=== PATIENT | female | born 1960 | race Caucasian/White ===

== ENCOUNTER 2023-09-29 14:32 | Inpatient (IN) | payer OTHER ==
--- NOTE | 2023-09-29 14:57 | ED ---
General Adult HPI - General Chief complaint: Neuro Symptoms/Deficit Stated complaint: Stroke Time Seen by Provider: 09/29/23 14:45 Source: patient, RN notes reviewed, old records reviewed Mode of arrival: EMS Limitations: no limitations - History of Present Illness Initial comments: This is a 63-year-old female who presents to the emergency department stating that last night at 9:00 she went to bed and she was normal when she woke up at 6:00 today she started having some difficulty speaking and decreased strength in her left leg and decreased sensation in her left arm. Patient states this occurred about a week ago and she went to [facility] where they did a CAT scan and MRI and sent her home telling her she had a TIA. Patient states si nce then she followed up with her primary medical care doctor and he told her he thought she had a stroke. Patient states she does not have the results of the MRI or CAT scan. Patient states this is occurred 3 other times since the original time that it occurred and she went to the hospital. Patient states that 3 other times it occurred she did not go to the hospital. Patient denies any recent fever chills or cough or patient denies any recent injury or trauma. Patient denies any chest pain difficulty breathing or shortness of breath. Patient is any palpitations. Patient denies any abdominal pain. - Related Data Allergies Allergy/AdvReac Type Severity Reaction Status Date / Time No Known Allergies Allergy Verified 09/29/23 14:45 Review of Systems ROS Statement: Those systems with pertinent positive or pertinent negative responses have been documented in the HPI. ROS Other: All systems not noted in ROS Statement are negative. Past Medical History Past Medical History: COPD, CVA/TIA, Hypertension History of Any Multi-Drug Resistant Organisms: None Reported Past Surgical History: Appendectomy, Cholecystectomy, Hysterectomy, Tonsillectomy Past Psychological History: No Psychological Hx Reported Smoking Status: Current every day smoker Past Alcohol Use History: None Reported Past Drug Use History: None Reported General Exam - General Exam Comments Initial Comments: GENERAL: Patient is well-developed and well-nourished. Patient is nontoxic and well- hydrated and is in no acute distress. ENT: Neck is soft and supple. No significant lymphadenopathy is noted. Oropharynx is clear. Moist mucous membranes. Neck has full range of motion without eliciting any pain. EYES: The sclera were anicteric and conjunctiva were pink and moist. Extraocular movements were intact and pupils were equal round and reactive to light. Eyelids were unremarkable. PULMONARY: Unlabored respirations. Good breath sounds bilaterally. No audible rales rhonchi or wheezing was noted. CARDIOVASCULAR: There is a regular rate and rhythm without any murmurs gallops or rubs. ABDOMEN: Soft and nontender with normal bowel sounds. SKIN: Skin is clear with no lesions or rashes and otherwise unremarkable. NEUROLOGIC: Patient is alert and oriented x3. Cranial nerves II through XII are grossly intact. Patient has 3 out of 5 weakness with the left lower extremity 4 plantarflexion. Patient is also unable to lift leg off the bed and she can easily do with the right leg. Patient has no drift patient states she does have some decrease sensation when I touch her left arm patient has some expressive aphasia symmetrical smile. Cerebellar exam grossly intact. NIH 3 MUSCULOSKELETAL: Normal extremities with adequate strength and full range of motion. No lower extremity swelling or edema. No calf tenderness. LYMPHATICS: No significant lymphadenopathy is noted PSYCHIATRIC: Normal psychiatric evaluation. Limitations: no limitations Course Vital Signs 09/29/23 09/29/23 14:35 14:46 Temperature 98.8 F Pulse Rate 106 H 105 H Respiratory 16 16 Rate Blood Pressure 150/86 164/99 O2 Sat by Pulse 92 L 93 L Oximetry Medical Decision Making - Medical Decision Making EKG was interpreted by myself EKG shows a sinus tachycardia at 101 bpm parables 135 QRS of 62 QT interval 326 QTc is 384. Patient's EKG shows no ST segment ovation or depression. Was pt. sent in by a medical professional or institution (, PA, IT ASSISTANT, urgent care, hospital, or long-term...) When possible be specific @ -No Did you speak to anyone other than the patient for history (EMS, parent, family, police, friend...)? What history was obtained from this source @ -No Did you review nursing and triage notes (agree or disagree)? Why? @ -I reviewed and agree with nursing and triage notes Were old charts reviewed (outside hosp., previous admission, EMS record, old EKG, old radiological studies, urgent care reports/EKG's, long-term records)? Report findings @ -No old charts were reviewed Differential Diagnosis (chest pain, altered mental status, abdominal pain women, abdominal pain men, vaginal bleeding, weakness, fever, dyspnea, syncope, headache, dizziness, GI bleed, back pain, seizure, CVA, palpatations, mental health, musculoskeletal)? @ -Differential CVA Ischemic stroke, hemorrhagic stroke, brain tumor, atypical migraine, Wernicke's encephalopathy, seizure, multiple sclerosis, meningitis, encephalitis, hypoglycemia, Guillain-Portillo, electrolytes disturbance, myasthenia gravis.... This is not meant to be an all-inclusive list EKG interpreted by me (3pts min.). @ -As above X-rays interpreted by me (1pt min.). @ -Chest x-ray shows no acute abnormality CT interpreted by me (1pt min.). @ -CT of the brain shows no acute abnormality CT angiogram of the head and neck showed no acute abnormality U/S interpreted by me (1pt. min.). @ -None done What testing was considered but not performed or refused? (CT, X-rays, U/S, labs)? Why? @ -None What meds were considered but not given or refused? Why? @ -None Did you discuss the management of the patient with other professionals (professionals i.e. , PA, IT ASSISTANT, lab, RT, psych nurse, social professionals, director market intelligence, teacher, air control/anti air warfare officer, pillowcase cleaner)? Give summary @ -I spoke with [facility] they agreed to admit the patient admit the patient wrote admitting orders but I also spoke with Dr. Jalloh and he agreed no intervention was indicated at this time Was smoking cessation discussed for >3mins.? @ -No Was critical care preformed (if so, how long)? @ -35 minutes Were there social determinants of health that impacted care today? How? (Homelessness, low income, unemployed, alcoholism, drug addiction, transportation, low edu. Level, literacy, decrease access to med. care, residential, rehab)? @ -No Was there de-escalation of care discussed even if they declined (Discuss DNR or withdrawal of care, Hospice)? DNR status @ -No What co-morbidities impacted this encounter? (DM, HTN, Smoking, COPD, CAD, Cancer, CVA, ARF, Chemo, Hep., AIDS, mental health diagnosis, sleep apnea, morbid obesity)? @ -None Was patient admitted / discharged? Hospital course, mention meds given and route, prescriptions, significant lab abnormalities, going to OR and other pertinent info. @ -Patient continued to have decreased strength in the left leg stuttering speech and some decrease sensation of the left arm Undiagnosed new problem with uncertain prognosis? @ -No Drug Therapy requiring intensive monitoring for toxicity (Heparin, Nitro, Insulin, Cardizem)? @ -No Were any procedures done? @ -No Diagnosis/symptom? @ -CVA Acute, or Chronic, or Acute on Chronic? @ -Acute Uncomplicated (without systemic symptoms) or Complicated (systemic symptoms)? @ -Default Side effects of treatment? @ -Did Exacerbation, Progression, or Severe Exacerbation? @ -No Poses a threat to life or bodily function? How? (Chest pain, [place], [place], pneumonia, PE, COPD, DKA, ARF, appy, cholecystitis, CVA, Diverticulitis, Homicidal, Suicidal, threat to staff... and all critical care pts) @ -Yes this could lead to a larger stroke and morbidity and mortality Disposition Clinical Impression: Cerebrovascular accident (CVA) Disposition: ADMITTED IP TO THIS HOSP Referrals: Austin Chappell [Primary Care Provider] - 1-2 days Time of Disposition: 15:23
[2023-09-29 15:38] LABS: ALT 34 U/L (4-34); AST 26 U/L (14-36); African American GFR (CKD) 46 (>60 ml/min/1.73 sqM); Albumin 4.2 g/dL (3.5-5.0); Alkaline Phosphatase 148 U/L (38-126); Anion Gap 8 mmol/L; Blood Urea Nitrogen 21 mg/dL (7-17); Calcium 8.8 mg/dL (8.4-10.2); Carbon Dioxide 25 mmol/L (22-30); Chloride 104 mmol/L (98-107); Creatine Kinase 39 U/L (30-135); Glucose 306 mg/dL (74-99); Non-African American GFR(CKD) 40 (>60 ml/min/1.73 sqM); Potassium 4.8 mmol/L (3.5-5.1); Sodium 137 mmol/L (137-145); Total Bilirubin 0.7 mg/dL (0.2-1.3); Total Protein 6.8 g/dL (6.3-8.2)
--- NOTE | 2023-09-29 15:39 | CT ---
EXAMINATION TYPE: CT brain wo con CT DLP: mGycm, Automated exposure control for dose reduction was used. DATE OF EXAM: 09/29/2023 3:15 PM COMPARISON: None.. CLINICAL INDICATION:Female, 63 years old with history of Neuro deficit, acute, stroke suspected, TECHNIQUE: Brain: Axial CT images of the brain were obtained with coronal and sagittal reformats created and rev iewed. Contrast used: None. Oral contrast used: None. FINDINGS: Extra-axial spaces: No abnormal extra-axial fluid collections. Basilar cisterns are patent. Ventricular system: Within normal limits. Cerebral parenchyma: No increased attenuation to suggest acute intraparenchymal hemorrhage. The gra y-white matter interface appears maintained. Mild/moderate generalized brain atrophy. Scattered hyp oattenuating areas are seen within the cerebral white matter, nonspecific but most often seen with ch ronic microvascular ischemic changes; mild in degree. Cerebellum: No acute abnormality. Mass effect: No evidence of mass effect or midline shift. Intracranial vasculature: Atherosclerotic calcifications of the larger arteries near the skull base. Soft tissues: No acute or concerning abnormality. Visualized orbits: Orbital contents appear grossly intact. Calvarium/osseous structures: No evidence of calvarial fracture. Paranasal sinuses and mastoid air cells: Clear. MRI is more sensitive for detecting acute processes such as infarct, and may be considered if clinica lly warranted. IMPRESSION: 1. No CT evidence of an acute intracranial abnormality. 2. Atrophy and chronic microvascular ischemic white matter changes.
[2023-09-29 15:42] LABS: Basophils % (A) 0 %; Eosinophils % (A) 0 %; HCT 37.4 % (34.0-46.0); HGB 12.5 gm/dL (11.4-16.0); Lymphocytes # (A) 1.3 k/uL (1.0-4.8); Lymphocytes % (A) 8 %; MCH 27.9 pg (25.0-35.0); MCHC 33.4 g/dL (31.0-37.0); MCV 83.7 fL (80.0-100.0); Mean Platelet Volume 9.4; Monocytes # (A) 0.3 k/uL (0-1.0); Monocytes % (A) 2 %; Neutrophils # (A) 14.8 k/uL (1.3-7.7); Neutrophils % (A) 90 %; Platelet Count 199 k/uL (150-450); RBC 4.47 m/uL (3.80-5.40); RDW 15.1 % (11.5-15.5); WBC 16.5 k/uL (3.8-10.6)
[2023-09-29 15:45] LABS: INR 0.8 (<1.2); Prothrombin Time 9.5 sec (10.0-12.5)
[2023-09-29] MEDS: SODIUM CHLORIDE 0.9% 500 ML 500 ML IV STA (15:45)
[2023-09-29] MEDS: ASPIRIN 325 MG TAB PO STA (15:45)
--- NOTE | 2023-09-29 16:17 | CT ---
EXAMINATION TYPE: CT angio head neck DATE OF EXAM: 09/29/2023 3:31 PM COMPARISON: Correlation same day CT head. CLINICAL INDICATION:Female, 63 years old with history of Neuro deficit, acute, stroke suspected; PHH, Code stroke. Stuttered speech, left leg weakness. TECHNIQUE: Axially acquired helical CT angiogram of the head and neck was obtained with contrast. Axi al images are supplemented with 3D reconstructions which were post-processed at an independent [facility]. NASCET criteria used. Contrast used: 65cc mL of Isovue 370 with IV Contrast, Oral contrast used: None. CT DLP: 506.8 mGycm, Automated exposure control for dose reduction was used. FINDINGS: CTA Neck: A 3 vessel aortic arch is shown with moderate mixed atherosclerotic disease throughout. There is mild to moderate stenosis of the origins of the branch vessels. No dissection is seen. Visualized ascendi ng aorta is mildly ectatic at 3.2 cm. Right carotid system: The common carotid is patent. Mild mostly calcified plaque at the bifurcation. There is no hemodynamically significant diameter stenosis, dissection, nor pseudoaneurysm present. Left carotid system: The common carotid is patent. Mild mostly calcified plaque at the bifurcation. T here is no hemodynamically significant diameter stenosis, dissection, nor pseudoaneurysm present. Vertebral arteries: There is no significant atherosclerotic plaque at the origins of the vertebral ar teries. Vessels appear essentially codominant. The vertebrals are then otherwise patent to the skull base. Other: Visualized neck soft tissues show no concerning abnormality. Thyroid shows a small calcificati on on the right. Subtle nodularity on the left difficult to exclude. Cervical spine shows mild degene rative changes and ACDF changes C5-C6-C7. Imaged portions of the lung apices show no acute infiltrate or pneumothorax. Visualized pulmonary arteries appear patent. Pulmonary trunk normal in size at 2.5 cm. CTA Head: Intracranial ICAs are patent. The left A1 segment of the NANDINI appears diminutive, likely developmental . Right NANDINI and bilateral MCA's appear patent. Anterior communicating artery is not well seen, but li joey patent and there is no gross regional abnormality. The intracranial vertebral arteries enhance normally. Basilar artery is patent and unremarkable. Norm al basilar bifurcation without evidence of aneurysm. Visualized proximal diesel dinkey engineer are patent. No sizable posterior communicating arteries are seen. No intracranial large vessel occlusion, hemodynamically significant stenosis, aneurysm, dissection, o r arteriovenous malformation is shown. The dural venous sinuses appear grossly patent without evidence of thrombosis. Other: Please refer to same-day CT head report.. IMPRESSION: CTA neck: 1. No dissection or pseudoaneurysm detected in the carotid or vertebral arteries in the neck. 2. Minor atherosclerotic calcific disease is present at the carotid bifurcations, without significant stenosis. 3. Moderate mixed atherosclerotic disease along the aortic arch. There is mild to moderate stenosis o f the origins of the branch vessels. CTA head: No intracranial large vessel occlusion, significant stenosis, or sizable aneurysm detected in the lezama its of CTA.
--- NOTE | 2023-09-29 18:21 | XR ---
EXAMINATION TYPE: XR chest 2V DATE OF EXAM: 09/29/2023 4:48 PM CLINICAL INDICATION:Female, 63 years old with history of altered mental status; [facility] COMPARISON: None TECHNIQUE: XR chest 2V Frontal and lateral views of the chest. FINDINGS: Lungs/Pleura: There is no evidence of pleural effusion, focal consolidation, or pneumothorax. Pulmonary vascularity: Unremarkable. Heart/mediastinum: Cardiomediastinal silhouette is unremarkable. Musculoskeletal: No acute osseous pathology. There is fixation hardware in the lower cervical spine. IMPRESSION: No acute cardiopulmonary disease/process.
[2023-09-29 21:00] LABS: Glucose,Whole Blood 202 mg/dL (70-110)
[2023-09-29] MEDS ORDERED: methocarbamoL 500 MG TAB PO PRN (22:24)
[2023-09-29] MEDS: ALPRAZolam 1 MG TAB PO SCH (22:51)
[2023-09-29] MEDS: HYDROcodone/APAP 10-325MG 1 EACH TAB PO SCH (22:51)
[2023-09-29] MEDS: PREGABALIN 75 MG CAP PO SCH (22:51)
[2023-09-29] MEDS: MONTELUKAST 10 MG TAB PO SCH (22:52)
[2023-09-29] MEDS: ATORVASTATIN 80 MG TAB PO SCH (22:52)
[2023-09-29] MEDS: INSULIN DETEMIR (LEVEMIR) 100 UNIT/ML SYR SQ SCH (22:52)
[2023-09-30 07:50] LABS: Glucose,Whole Blood 89 mg/dL (70-110)
[2023-09-30] MEDS: INSULIN ASPART (NovoLOG) 100 UNIT/ML VIAL SQ SCH (08:15)
[2023-09-30] MEDS: ASPIRIN 325 MG TAB PO SCH (08:25)
--- NOTE | 2023-09-30 11:43 | P.HPIM ---
History of Present Illness 60-year-old pleasant female with smoking history continues to smoke came in with complaints of difficulty speaking, motor aphasia and decreased strength in the left side along with decreased sensation on the left side. Patient's strength is around 4/5 in the left upper and lower extremity. Patient does not have any significant facial droop. Patient had a CT angio of the head and neck and CT of the head which did not show any significant abnormality except for l old microvascular ischemic changes. Patient blood sugars are high at 306 and creatinine of 1.41, do not have any baseline creatinine. Patient is admitted for stroke and stroke workup REVIEW OF SYSTEMS: CONSTITUTIONAL: No fever, no malaise, no fatigue. HEENT: No recent visual problems or hearing problems. Denied any sore throat. CARDIOVASCULAR: No chest pain, orthopnea, PND, no palpitations, no syncope. PULMONARY: No shortness of breath, no cough, no hemoptysis. GASTROINTESTINAL: No diarrhea, no nausea, no vomiting, no abdominal pain. NEUROLOGICAL: No headaches HEMATOLOGICAL: Denies any bleeding or petechiae. GENITOURINARY: Denies any burning micturition, frequency, or urgency. MUSCULOSKELETAL/RHEUMATOLOGICAL: Denies any joint pain, swelling, or any muscle pain. ENDOCRINE: Denies any polyuria or polydipsia. The rest of the 14-point review of systems is negative. PHYSICAL EXAMINATION: GENERAL: The patient is alert and oriented x3, not in any acute distress. Well developed, well nourished. HEENT: Pupils are round and equally reacting to light. EOMI. No scleral icterus. No conjunctival pallor. Normocephalic, atraumatic. No pharyngeal erythema. No thyromegaly. CARDIOVASCULAR: S1 and S2 present. No murmurs, rubs, or gallops. PULMONARY: Chest is clear to auscultation, no wheezing or crackles. ABDOMEN: Soft, nontender, nondistended, normoactive bowel sounds. No palpable organomegaly. MUSCULOSKELETAL: No joint swelling or deformity. EXTREMITIES: No cyanosis, clubbing, or pedal edema. NEUROLOGICAL: Focal deficits as mentioned above patient has speech abnormality SKIN: No rashes. Assessment and plan -Ischemic stroke involving right side of the brain and left side of the body, in the middle cerebral artery territory perforating branches supplying subcortical/internal capsular areas. Lipid panel will be obtained hemoglobin A1c will be obtained, PT and OT consultation MRI of the brain, echocardiogram and dual antiplatelet therapy. Neurology evaluation Leukocytosis reactive without any evidence of infection -Hypertension patient blood pressure is elevated patient will be restarted back on amlodipine and hold off on losartan/lisinopril for permissive hypertension -Elevated creatinine unknown baseline, may have acute renal failure holding of LUCIUS inhibitor/ARB, patient was started on gentle hydration -COPD without any acute exacerbation continue to: Use: Counseling was provided -Hyperlipidemia -Type 2 diabetes mellitus: Patient will be resumed on home regimen along with sliding scale insulin -Gastroesophageal reflux disease DVT prophylaxis: Subcutaneous heparin Past Medical History Past Medical History: COPD, CVA/TIA, Hypertension History of Any Multi-Drug Resistant Organisms: None Reported Past Surgical History: Appendectomy, Cholecystectomy, Hysterectomy, Tonsillectomy Past Psychological History: No Psychological Hx Reported Smoking Status: Current every day smoker Past Alcohol Use History: None Reported Past Drug Use History: None Reported Medications and Allergies Home Medications Medication Instructions Recorded Confirmed Type ALPRAZolam [Xanax] 1 mg PO BID 09/29/23 09/29/23 History Aspirin 81 mg PO HS 09/29/23 09/29/23 History Atorvastatin [Lipitor] 80 mg PO HS 09/29/23 09/29/23 History Dulaglutide [Trulicity] 0.75 mg SQ FR 09/29/23 09/29/23 History HYDROcodone/APAP 10-325MG [[place] 1 tab PO TID 09/29/23 09/29/23 History 10-325] INSULIN LISPRO (HumaLOG) [humaLOG] 10 units SQ TID 09/29/23 09/29/23 History Insulin Glargine,Hum.rec.anlog 45 units SQ HS 09/29/23 09/29/23 History [Lantus Solostar Pen] Magnesium Oxide [Magnesium] 500 mg PO BID 09/29/23 09/29/23 History Montelukast [Singulair] 10 mg PO HS 09/29/23 09/29/23 History Multivitamin/Iron/Folic Acid 1 tab PO DAILY 09/29/23 09/29/23 History [Centrum Women Tablet] Nicotine 7Mg/24Hr Patch [Habitrol] 1 patch TRANSDERM DIRECTED 09/29/23 09/29/23 History Omeprazole 20 mg PO DAILY 09/29/23 09/29/23 History Pregabalin [Lyrica] 225 mg PO BID 09/29/23 09/29/23 History allopurinoL 100 mg PO DAILY 09/29/23 09/29/23 History amLODIPine [Norvasc] 5 mg PO DAILY 09/29/23 09/29/23 History calcitrioL 0.25 mcg PO JOHNSON@2100 09/29/23 09/29/23 History lisinopriL [Zestril] 20 mg PO DAILY 09/29/23 09/29/23 History methocarbamoL [Robaxin] 500 mg PO QID PRN 09/29/23 09/29/23 History predniSONE See Taper PO HS 09/29/23 09/29/23 History Allergies Allergy/AdvReac Type Severity Reaction Status Date / Time No Known Allergies Allergy Verified 09/29/23 14:45 Physical Exam Vitals: Vital Signs Temp Pulse Resp BP BP Pulse Ox 09/30/23 08:25 98 09/30/23 07:40 18 153/89 98 09/30/23 05:27 97.8 F 89 18 153/89 98 09/30/23 02:40 90 18 165/97 97 09/29/23 22:55 80 20 131/65 97 09/29/23 20:13 98.4 F 95 93 H 180/101 93 L 09/29/23 18:08 98.5 F 88 16 133/88 93 L 09/29/23 16:30 90 18 136/82 09/29/23 15:34 96 16 154/91 96 09/29/23 14:46 105 H 16 164/99 93 L 09/29/23 14:35 98.8 F 106 H 16 150/86 92 L Results CBC & Chem 7: 09/29/23 14:57 09/29/23 14:57 Labs: Abnormal Lab Results - Last 24 Hours (Table) 09/29/23 09/29/23 09/29/23 Range/Units 14:57 14:57 14:57 WBC 16.5 H (3.8-10.6) k/uL Neutrophils # 14.8 H (1.3-7.7) k/uL PT 9.5 L (10.0-12.5) sec BUN 21 H (7-17) mg/dL Creatinine 1.41 H (0.52-1.04) mg/dL Glucose 306 H (74-99) mg/dL POC Glucose (mg/dL) (70-110) mg/dL Alkaline Phosphatase 148 H (38-126) U/L 09/29/23 Range/Units 20:59 WBC (3.8-10.6) k/uL Neutrophils # (1.3-7.7) k/uL PT (10.0-12.5) sec BUN (7-17) mg/dL Creatinine (0.52-1.04) mg/dL Glucose (74-99) mg/dL POC Glucose (mg/dL) 202 H (70-110) mg/dL Alkaline Phosphatase (38-126) U/L
[2023-09-30] MEDS: NICOTINE 7MG/24HR PATCH TRANSDERM SCH (11:51)
[2023-09-30 12:53] LABS: Glucose,Whole Blood 108 mg/dL (70-110)
[2023-09-30 15:54] LABS: LDL Cholesterol,Calculated 114.2 mg/dL (0.0-131.0)
[2023-09-30 16:09] LABS: Glucose,Whole Blood 209 mg/dL (70-110)
[2023-09-30] MEDS: CLOPIDOGREL 75 MG TAB PO SCH (17:05)
[2023-09-30] MEDS: LACTATED RINGERS 1,000 ML IV SCH (17:06)
[2023-09-30] MEDS: HEPARIN SODIUM,PORCINE 5,000 UNIT/ML 1 ML VIAL SQ SCH (17:06)
[2023-09-30 19:40] LABS: Glucose,Whole Blood 147 mg/dL (70-110)
--- NOTE | 2023-09-30 20:28 | CA ---
Transthoracic Echo Report Name: Mame Brantley Age: 63 Gender: F : 1960 Exam Date: 09/30/2023 16:22 Exam Location: [place] Echo Ht (in): 60 Wt (lb): 170 Ordering Physician: Glenny Thornton MD Attending/Referring Phys: Drone Operator Priscilla Nuñez RDCS Procedure CPT: Indications: stroke Cardiac Hx: Technical Quality: Fair Contrast 1: Agitated Saline Total Dose (mL): Contrast 2: Total Dose (mL): MEASUREMENTS (Male / Female) Normal Values 2D ECHO LV Diastolic Diameter PLAX 4.7 cm 4.2 - 5.9 / 3.9 - 5.3 cm LV Systolic Diameter PLAX 3.2 cm IVS Diastolic Thickness 1.1 cm 0.6 - 1.0 / 0.6 - 0.9 cm LVPW Diastolic Thickness 1.1 cm 0.6 - 1.0 / 0.6 - 0.9 cm LV Relative Wall Thickness 0.5 RV Internal Dim ED PLAX 1.6 cm LA Systolic Diameter LX 3.9 cm 3.0 - 4.0 / 2.7 - 3.8 cm LV Diastolic Volume MOD BP 62.8 cm??? 67 - 155 / 56 - 104 cm??? LV Systolic Volume MOD BP 23.7 cm??? 22 - 58 / 19 - 49 cm??? LV Ejection Fraction MOD BP 62.2 % >= 55 % LV Cardiac Index MOD BP 1886.8 cm???/min???m??? LV Diastolic Volume MOD 4C 66.1 cm??? LV Systolic Volume MOD 4C 24.6 cm??? LV Ejection Fraction MOD 4C 62.8 % LV Cardiac Index MOD 4C 2005.9 cm???/min???m??? LV Diastolic Length 4C 6.5 cm LV Systolic Length 4C 6.0 cm LV Diastolic Volume MOD 2C 58.2 cm??? LV Systolic Volume MOD 2C 21.1 cm??? LV Ejection Fraction MOD 2C 63.8 % LV Cardiac Index MOD 2C 1796.8 cm???/min???m??? LV Diastolic Length 2C 6.7 cm LV Systolic Length 2C 5.4 cm LA Volume 48.9 cm??? 18 - 58 / 22 - 52 cm??? LA Volume Index 26.6 cm???/m??? 16 - 28 cm???/m??? M-MODE Aortic Root Diameter MM 2.9 cm LA Systolic Diameter MM 3.5 cm LA Ao Ratio MM 1.2 AV Cusp Separation MM 1.8 cm DOPPLER MV Area PHT 3.0 cm??? Mitral E Point Velocity 96.6 cm/s Mitral A Point Velocity 93.4 cm/s Mitral E to A Ratio 1.0 MV Deceleration Time 254.4 ms TR Peak Velocity 309.8 cm/s TR Peak Gradient 38.4 mmHg Right Ventricular Systolic Press 42.8 mmHg FINDINGS Left Ventricle Left ventricular ejection fraction is estimated at 55-60 %. Mildly increased septal wall thickness. Mildly increased posterior wall thickness. Normal left ventricular systolic function with no obvious regional wall motion abnormalities. Left ventricular cavity size normal. Right Ventricle Normal right ventricular size and function. Mild pulmonary hypertension. Right Atrium Normal right atrial size. Negative agitated saline bubble study for right to left shunt. Left Atrium Normal left atrial size. No evidence for an atrial septal defect. No patent foramen ovale. Mitral Valve Structurally normal mitral valve. Mild mitral regurgitation. Aortic Valve Trileaflet aortic valve. No aortic valve stenosis or regurgitation. Tricuspid Valve Structurally normal tricuspid valve. Mild tricuspid regurgitation. Pulmonic Valve Structurally normal pulmonic valve. Trace pulmonic regurgitation. No pulmonic stenosis. Pericardium No pericardial or pleural effusion. Aorta Normal size aortic root and proximal ascending aorta. CONCLUSIONS Normal LV size and function Negative bubble study No intracardiac masses Previewed by: Dr. Varghese Melvin MD (Electronically Signed) Final Date: 30 September 2023 20:27
[2023-09-30] MEDS: ASPIRIN 81 MG PO SCH (20:33)
[2023-10-01 05:51] LABS: Glucose,Whole Blood 143 mg/dL (70-110)
[2023-10-01 07:05] LABS: HCT 38.4 % (34.0-46.0); HGB 12.1 gm/dL (11.4-16.0); MCH 27.1 pg (25.0-35.0); MCHC 31.4 g/dL (31.0-37.0); MCV 86.3 fL (80.0-100.0); Mean Platelet Volume 8.8; Platelet Count 195 k/uL (150-450); RBC 4.45 m/uL (3.80-5.40); RDW 15.4 % (11.5-15.5); WBC 12.2 k/uL (3.8-10.6)
[2023-10-01 07:57] LABS: African American GFR (CKD) 49 (>60 ml/min/1.73 sqM); Anion Gap 6 mmol/L; Blood Urea Nitrogen 19 mg/dL (7-17); Calcium 9.4 mg/dL (8.4-10.2); Carbon Dioxide 32 mmol/L (22-30); Chloride 100 mmol/L (98-107); Glucose 143 mg/dL (74-99); Magnesium 1.4 mg/dL (1.6-2.3); Non-African American GFR(CKD) 43 (>60 ml/min/1.73 sqM); Potassium 4.2 mmol/L (3.5-5.1); Sodium 138 mmol/L (137-145)
[2023-10-01] MEDS: amLODIPine 5 MG TAB PO SCH (08:42)
[2023-10-01] MEDS: allopurinoL 100 MG TAB PO SCH (08:42)
[2023-10-01] MEDS: PANTOPRAZOLE 40 MG TABLET PO SCH (08:42)
[2023-10-01] MEDS ORDERED: ONDANSETRON 4 MG/2 ML VIAL IVP PRN (08:58)
--- NOTE | 2023-10-01 09:27 | P.CNNES ---
History of Present Illness Consult date: 09/30/23 Requesting physician: Christoph Mas Reason for Consult: CVA History of Present Illness: Patient is a 63-year-old left-handed female with history of hypertension, diabetes, hyperlipidemia, tobacco use, came to the hospital by ambulance yesterday at 2:32 PM for trouble with speech and talking. EMS flowsheet not available in the chart. Patient was accompanied with her boyfriend at this time. It appears patient was admitted to [facility] for about 5 days, for similar problems, released on 09/21/2023. Patient at that time was admitted because of trouble breathing, not feeling right, could barely speak therefore they called the ambulance. Patient stated that she was dragging her right leg, although the boyfriend says that she was dragging her left leg. It appears the symptoms have been present for last 2-1/2-3 weeks. Patient was not satisfied with their treatment. Patient apparently had an MRI performed, but they were not told of the results. She came to this hospital now for same problems as above. There was no report of facial droop, problem with the vision although patient stated that she was having "hard time seeing", not clear with blurred vision bilaterally for last few days. Vital signs on arrival blood pressure 150/86, pulse rate 106, temperature 98.8. Blood test shows WBC 16.5 hemoglobin 12.5 platelets are normal. PT PTT normal. Electrolytes are normal, BUN 21, creatinine 1.41. Hepatic panel is normal. Troponin negative, CK normal. EKG showed sinus tachycardia. CT head revealed no CT evidence of an acute intracranial abnormality. Atrophy and chronic microvascular ischemic white matter changes. I personally reviewed CT head, agree with the findings. Chest x-ray showed no acute cardiopulmonary disease. Patient has history of diabetes for 3-4 years, has been on aspirin regimen for last 1 year. She does have hyperlipidemia, hypertension. She has mostly smoked 1 pack per day since age 18, cutback to 7 cigarettes per day for last 5-6 michele hs. She has been using a walker for one year because of balance issues. She does have some peripheral neuropathy related to diabetes. Home medications include Lipitor 80 mg, aspirin 81 mg, and some other blood pressure medications and for diabetes. Review of Systems Constitutional: Denies chills, Denies fever Eyes: bilateral as per HPI, denies diplopia, denies loss of peripheral vision Ears: deny: decreased hearing, ear discharge Ears, nose, mouth and throat: Denies headache, Denies sore throat, Denies vertigo Cardiovascular: Denies chest pain, Denies lightheadedness, Denies shortness of breath Respiratory: Denies cough, Denies wheezing Gastrointestinal: Denies abdominal pain, Denies diarrhea, Denies nausea, Denies vomiting Integumentary: Denies pruritus, Denies rash Neurological: Reports as per HPI Psychiatric: Reports anxiety, Reports depression Past Medical History Past Medical History: COPD, CVA/TIA, Hypertension History of Any Multi-Drug Resistant Organisms: None Reported Past Surgical History: Appendectomy, Cholecystectomy, Hysterectomy, Tonsillectomy Past Psychological History: No Psychological Hx Reported Smoking Status: Current every day smoker Past Alcohol Use History: None Reported Past Drug Use History: None Reported Medications and Allergies Home Medications Medication Instructions Recorded Confirmed Type ALPRAZolam [Xanax] 1 mg PO BID 09/29/23 09/29/23 History Aspirin 81 mg PO HS 09/29/23 09/29/23 History Atorvastatin [Lipitor] 80 mg PO HS 09/29/23 09/29/23 History Dulaglutide [Trulicity] 0.75 mg SQ FR 09/29/23 09/29/23 History HYDROcodone/APAP 10-325MG [[place] 1 tab PO TID 09/29/23 09/29/23 History 10-325] INSULIN LISPRO (HumaLOG) [humaLOG] 10 units SQ TID 09/29/23 09/29/23 History Insulin Glargine,Hum.rec.anlog 45 units SQ HS 09/29/23 09/29/23 History [Lantus Solostar Pen] Magnesium Oxide [Magnesium] 500 mg PO BID 09/29/23 09/29/23 History Montelukast [Singulair] 10 mg PO HS 09/29/23 09/29/23 History Multivitamin/Iron/Folic Acid 1 tab PO DAILY 09/29/23 09/29/23 History [Centrum Women Tablet] Nicotine 7Mg/24Hr Patch [Habitrol] 1 patch TRANSDERM DIRECTED 09/29/23 09/29/23 History Omeprazole 20 mg PO DAILY 09/29/23 09/29/23 History Pregabalin [Lyrica] 225 mg PO BID 09/29/23 09/29/23 History allopurinoL 100 mg PO DAILY 09/29/23 09/29/23 History amLODIPine [Norvasc] 5 mg PO DAILY 09/29/23 09/29/23 History calcitrioL 0.25 mcg PO JOHNSON@2100 09/29/23 09/29/23 History lisinopriL [Zestril] 20 mg PO DAILY 09/29/23 09/29/23 History methocarbamoL [Robaxin] 500 mg PO QID PRN 09/29/23 09/29/23 History predniSONE See Taper PO HS 09/29/23 09/29/23 History Allergies Allergy/AdvReac Type Severity Reaction Status Date / Time No Known Allergies Allergy Verified 09/29/23 14:45 Physical Examination - Vital Signs Vital Signs: Vital Signs Temp Pulse Resp BP BP Pulse Ox 09/30/23 08:25 98 09/30/23 07:40 18 153/89 98 09/30/23 05:27 97.8 F 89 18 153/89 98 09/30/23 02:40 90 18 165/97 97 09/29/23 22:55 80 20 131/65 97 09/29/23 20:13 98.4 F 95 93 H 180/101 93 L 09/29/23 18:08 98.5 F 88 16 133/88 93 L 09/29/23 16:30 90 18 136/82 09/29/23 15:34 96 16 154/91 96 09/29/23 14:46 105 H 16 164/99 93 L 09/29/23 14:35 98.8 F 106 H 16 150/86 92 L Patient is a late middle aged female in no acute distress. She has a flat affect. Patient is alert awake oriented to time place and person. Speech and language functions are normal. Patient can name and repeat very well. No aphasia or dysarthria, although patient is talking somewhat slow with effortful speech. Attention, concentration and fund of knowledge is adequate. Patient has slightly slow mentation, prolonged latency to answer questions. On cranial nerve examination, pupils are equal, round and reacting to light, visual elder are full on confrontation, with no neglect on double simultaneous stimulation. Extraocular muscles are intact with no nystagmus. Face is symmetric, tongue protrudes to the midline. Palatal elevation and sensation normal, hearing and shoulder shrug normal, facial sensation normal. On muscle strength testing, there is no pronator drift and the strength is normal in arms and legs distally and proximally. Deep tendon reflexes are symmetric 1 at the biceps, 1 brachioradialis, 1+ at the knees, and ankles and plantars downgoing bilaterally. Sensory to touch is equal with no neglect on double simultaneous stimulation. Cerebellar function showed no ataxia for [id number] testing. No dysdiadochokinesia. No ataxia for [id number] testing on either side. Tone and bulk of muscles normal. Gait deferred.. On general examination, there is no carotid bruit or murmur, S1-S2 audible. Chest is clear on consultation. Abdomen is soft nontender. No organomegaly, bowel sounds present. Peripheral pulses are present. No peripheral edema. Results - Laboratory Findings CBC and BMP: 10/01/23 06:31 10/01/23 06:31 Abnormal Lab Findings: Abnormal Labs 09/29/23 09/29/23 09/29/23 14:57 14:57 14:57 WBC 16.5 H Neutrophils # 14.8 H PT 9.5 L BUN 21 H Creatinine 1.41 H Glucose 306 H POC Glucose (mg/dL) Alkaline Phosphatase 148 H 09/29/23 20:59 WBC Neutrophils # PT BUN Creatinine Glucose POC Glucose (mg/dL) 202 H Alkaline Phosphatase Assessment and Plan Assessment: * 63-year-old female admitted with some speech difficulty and dragging right leg(per boyfriend, she drags her left leg). The symptoms have been present for last 2-1/2-3 weeks for which she was hospitalized at [facility] from 09/16/2023 and discharged on 09/21/2023. Patient had MRI performed, results are not available. Current examination is nonfocal. She has slightly slow s peech, but no aphasia or dysarthria. Rest of the examination is nonfocal. NIH stroke scale is 0. * Hypertension * Diabetes * Hyperlipidemia * Mild renal insufficiency * Tobacco use Plan: * We will obtain medical records from recent hospitalizations [facility]. * MRI initiated by primary physician. * 2-D echo was performed, which revealed normal left radicular size and systolic function with EF 55-60%. No evidence for an atrial septal defect. No PFO. Bubble study negative. No intracardiac mass. No valvular abnormalities. * CTA head and neck showed: No dissection or pseudoaneurysm detected in the carotid or vertebral arteries in the neck. Minor atherosclerotic calcific disease is present at the carotid bifurcations, without significant stenosis. Moderate mixed atherosclerotic disease along the aortic arch. There is mild to moderate stenosis of the origins of the branch vessels. No intracranial large vessel occlusion, significant stenosis or sizable aneurysm detected in the CTA of the head. * Fasting a.m. lipid panel with cholesterol 200, LDL 114, HDL 64 and triglycerides 106. Continue Lipitor 80 mg daily. * Hemoglobin A1c * Optimize control of blood pressure. * Patient was already taking aspirin 81 mg daily for last 1 year. Patient is having some stroke type symptoms. We will start Plavix 75 mg daily. Recommend continuing DAPT for 21 days, then stop aspirin and continue Plavix. * Recommend aggressive control of stroke risk factors. * Neuro checks as per protocol. * Telemetry monitoring rule out any arrhythmia * PT, OT, speech therapy * Recommend complete tobacco cessation. * DVT prophylaxis: Heparin 5000 units subcu every 8 hours * Neurology will continue to follow. Thank you for the consult. Review of records from [facility]: Patient admitted on 09/17/2023 for strokelike symptoms with slurring of her words, difficulty speaking and shortness of breath. Patient also reported right arm numbness and tingling with no obvious weakness or facial droop. Patient's daughter has mentioned that she has some mild dysarthria at baseline but it was much worse. Her last hemoglobin A1c 5.7 on 02/21/2023. CBC was normal. Hepatic panel normal. UA negative. CT head revealed no evidence of acute intracranial bleed, midline shift or mass effect. Patient was seen by neurology telemetry consultation by Dr. Castillo. MRI of the brain with MRA recommended. Aspirin, Lipitor were recommended. In the discharge summary, MRI and MRA results are still pending, did not reported.
[2023-10-01 11:39] LABS: Glucose,Whole Blood 63 mg/dL (70-110)
[2023-10-01 12:03] LABS: Glucose,Whole Blood 72 mg/dL (70-110)
[2023-10-01] MEDS ORDERED: Magnesium Replacement Protocol 1 EACH MISC MISCELLANE PRN (15:16)
[2023-10-01] MEDS: MAGNESIUM SULFATE-D5W PMX 1 GM in DEXTROSE/WATER 1 100ML.BAG IVPB SCH (15:34)
--- NOTE | 2023-10-01 15:52 | P.CONS ---
History of Present Illness - Reason for Consult Consult date: 10/01/23 Rehab Needs - Chief Complaint LLE weakness, difficulty walking, speech difficulty - History of Present Illness PMR Consult Mrs. Brantley is a 63 yo female , left handed, lives alone in an a partment with no JOANA. Used a walker for mobility, was independent with ADLs CLIENT SERVICES ANALYST. Her boy friend lives upstairs and can help; she has 4 adult children in [place] that may be able to help as well. She has a past history of hypertension, diabetes, hyperlipidemia, tobacco use, came to the hospital by ambulance for trouble with speech and talking. EMS flowsheet not available in the chart. Patient was accompanied with her boyfriend at this time. It appears patient was admitted to [facility] for about 5 days, for similar problems, released on 09/21/2023. Patient at that time was admitted because of trouble breathing, not feeling right, could barely speak therefore they called the ambulance. Patient stated that she was dragging her right leg, although the boyfriend says that she was dragging her left leg. It appears the symptoms have been present for last 2-1/2-3 weeks. Patient was not satisfied with their treatment. Patient apparently had an MRI performed, but they were not told of the results. She came to this hospital now for same problems as above. There was no report of facial droop, problem with the vision although patient stated that she was having "hard time seeing", not clear with blurred vision bilaterally for last few days. Vital signs on arrival blood pressure 150/86, pulse rate 106, temperature 98.8. Blood test shows WBC 16.5 hemoglobin 12.5 platelets are normal. PT PTT normal. Electrolytes are normal, BUN 21, creatinine 1.41. Hepatic panel is normal. Troponin negative, CK normal. EKG showed sinus tachycardia. CT head revealed no CT evidence of an acute intracranial abnormality. Atrophy and chronic microvascular ischemic white matter changes. Neurology reviewed CT head, agreed with the findings. Chest x-ray showed no acute cardiopulmonary disease. Patient has history of diabetes for 3-4 years, has been on aspirin regimen for last 1 year. She does have hyperlipidemia, hypertension. She has mostly smoked 1 pack per day since age 18, cutback to 7 cigarettes per day for last 5-6 months. She has been using a walker for one year because of balance issues. She does have some peripheral neuropathy related to diabetes. Home medications include Lipitor 80 mg, aspirin 81 mg, and some other blood pressure medications and for diabetes. MRI Brain pending, scheduled for later this afternoon. PMR consulted for rehab needs. Her and her boyfriend note can have issues with her left leg. Her biggest issue is occasional SHARP. She also notes vision changes, is tired, had emesis this am and has been constipated. Denies any CP, SOB, abdominal pain or other pain complaints. Is on Xanax for anxiety. Per PT supervision to min A for bed mobility, transfers, ambulate 40' with RW. OT notes pending. Per nursing ambulated around room with SBA. Review of Systems + per above, o/w all systems reviewed negative Past Medical History Past Medical History: COPD, CVA/TIA, Hypertension History of Any Multi-Drug Resistant Organisms: None Reported Past Surgical History: Appendectomy, Cholecystectomy, Hysterectomy, Tonsillectomy Past Psychological History: No Psychological Hx Reported Smoking Status: Current every day smoker Past Alcohol Use History: None Reported Past Drug Use History: None Reported Medications and Allergies Home Medications Medication Instructions Recorded Confirmed Type ALPRAZolam [Xanax] 1 mg PO BID 09/29/23 09/29/23 History Aspirin 81 mg PO HS 09/29/23 09/29/23 History Atorvastatin [Lipitor] 80 mg PO HS 09/29/23 09/29/23 History Dulaglutide [Trulicity] 0.75 mg SQ FR 09/29/23 09/29/23 History HYDROcodone/APAP 10-325MG [[place] 1 tab PO TID 09/29/23 09/29/23 History 10-325] INSULIN LISPRO (HumaLOG) [humaLOG] 10 units SQ TID 09/29/23 09/29/23 History Insulin Glargine,Hum.rec.anlog 45 units SQ HS 09/29/23 09/29/23 History [Lantus Solostar Pen] Magnesium Oxide [Magnesium] 500 mg PO BID 09/29/23 09/29/23 History Montelukast [Singulair] 10 mg PO HS 09/29/23 09/29/23 History Multivitamin/Iron/Folic Acid 1 tab PO DAILY 09/29/23 09/29/23 History [Centrum Women Tablet] Nicotine 7Mg/24Hr Patch [Habitrol] 1 patch TRANSDERM DIRECTED 09/29/23 09/29/23 History Omeprazole 20 mg PO DAILY 09/29/23 09/29/23 History Pregabalin [Lyrica] 225 mg PO BID 09/29/23 09/29/23 History allopurinoL 100 mg PO DAILY 09/29/23 09/29/23 History amLODIPine [Norvasc] 5 mg PO DAILY 09/29/23 09/29/23 History calcitrioL 0.25 mcg PO JOHNSON@2100 09/29/23 09/29/23 History lisinopriL [Zestril] 20 mg PO DAILY 09/29/23 09/29/23 History methocarbamoL [Robaxin] 500 mg PO QID PRN 09/29/23 09/29/23 History predniSONE See Taper PO HS 09/29/23 09/29/23 History Allergies Allergy/AdvReac Type Severity Reaction Status Date / Time No Known Allergies Allergy Verified 09/29/23 14:45 Physical Exam Vitals: Vital Signs Temp Pulse Resp BP Pulse Ox 10/01/23 11:19 88 17 118/78 94 L 10/01/23 07:51 98.0 F 96 15 171/85 95 10/01/23 04:45 102 H 18 184/84 92 L 09/30/23 23:45 84 18 161/85 94 L 09/30/23 19:45 98.0 F 91 18 164/92 94 L 09/30/23 16:00 98.2 F 91 18 164/72 93 L Intake and Output 10/01/23 10/01/23 10/01/23 06:59 14:59 22:59 Intake Total 358 Output Total 675 1400 Balance -675 -1042 Intake: Oral 358 Output: Urine 675 1400 Straight 675 700 Other: Voiding Method External Catheter External Catheter PHYSICAL EXAMINATION: GENERAL: NAD, alert, pleasant HEENT: Pupils are round and equally reacting to light. EOMI. No scleral icterus. Normocephalic, atraumatic. + dry mouth (2/2 to dentures per boyfiend) CARDIOVASCULAR: Regular rate PULMONARY: Non-labored respirations, 3L O2 ABDOMEN: Soft, nontender, nondistended MUSCULOSKELETAL: No joint swelling or deformity. NEURO: Alert and oriented x4. Speech mildly delayed, content fluent, very slight dysarthria Follows 3 step commands MMT: 5/5 bilateral UE, right LE, left DF; on formal exam difficulty with HF/KE though with spontaneous movements moves LLE without difficulty and fluently DTR symmetric, 1+ UE/LE Sensation light touch intact UE/LE Finger to nose and heel to dickey intact bilaterally, though movements with Left LE slower compared to right. EXTREMITIES: No cyanosis, clubbing, or pedal edema. SKIN: Warm and dry Results CBC & Chem 7: 10/01/23 06:31 10/01/23 06:31 Labs: Abnormal Lab Results - Last 24 Hours (Table) 09/29/23 09/30/23 09/30/23 Range/Units 14:57 12:15 16:08 WBC (3.8-10.6) k/uL Carbon Dioxide (22-30) mmol/L BUN (7-17) mg/dL Creatinine (0.52-1.04) mg/dL Glucose (74-99) mg/dL POC Glucose (mg/dL) 209 H (70-110) mg/dL Hemoglobin A1c 7.6 H (<=6.0) % Magnesium (1.6-2.3) mg/dL HDL Cholesterol 64.60 H (40.00-60.00) mg/dL 09/30/23 10/01/23 10/01/23 Range/Units 19:39 05:50 06:31 WBC 12.2 H (3.8-10.6) k/uL Carbon Dioxide (22-30) mmol/L BUN (7-17) mg/dL Creatinine (0.52-1.04) mg/dL Glucose (74-99) mg/dL POC Glucose (mg/dL) 147 H 143 H (70-110) mg/dL Hemoglobin A1c (<=6.0) % Magnesium (1.6-2.3) mg/dL HDL Cholesterol (40.00-60.00) mg/dL 10/01/23 10/01/23 Range/Units 06:31 11:37 WBC (3.8-10.6) k/uL Carbon Dioxide 32 H (22-30) mmol/L BUN 19 H (7-17) mg/dL Creatinine 1.33 H (0.52-1.04) mg/dL Glucose 143 H (74-99) mg/dL POC Glucose (mg/dL) 63 L (70-110) mg/dL Hemoglobin A1c (<=6.0) % Magnesium 1.4 L (1.6-2.3) mg/dL HDL Cholesterol (40.00-60.00) mg/dL Assessment and Plan Assessment: Assessment: # Gait impairment with left LE weakness - sup to min A with PT; OT pending. BANDER OPERATOR unable to fully work with patient as lethargic when seen # TIA vs. CVA with left LE weakness, speech difficulty on presentation. Of note was seen at [facility] for similar issues 09/17/23. MRI reportedly performed there, but results unavailable - 2-D echo was performed, which revealed normal left radicular size and systolic function with EF 55-60%. No evidence for an atrial septal defect. No PFO. Bubble study negative. No intracardiac mass. No valvular abnormalities. - CTA head and neck showed: No dissection or pseudoaneurysm detected in the carotid or vertebral arteries in the neck. Minor atherosclerotic calcific disease is present at the carotid bifurcations, without significant stenosis. Moderate mixed atherosclerotic disease along the aortic arch. There is mild to moderate stenosis of the origins of the branch vessels. No intracranial large vessel occlusion, significant stenosis or sizable aneurysm detected in the CTA of the head. - MRI brain pending - neurology following, non-focal exam # Leukocytosis reactive without any evidence of infection # Hypertension patient blood pressure is elevated patient will be restarted back on amlodipine and hold off on losartan/lisinopril for permissive hypertension #Elevated creatinine unknown baseline, may have acute renal failure holding of LUCIUS inhibitor/ARB, patient was started on gentle hydration # COPD without any acute exacerbation -on 3L O2 at home # Hyperlipidemia # Type 2 diabetes mellitus: Patient will be resumed on home regimen along with sliding scale insulin # Gastroesophageal reflux disease DVT prophylaxis: Subcutaneous heparin Recommendations: - per your medical management - continue PT/OT/BANDER OPERATOR Will continue to follow and reasses as workup continues and she works with therapies.
--- NOTE | 2023-10-01 17:10 | MR ---
EXAMINATION TYPE: MR brain wo con DATE OF EXAM: 10/01/2023 COMPARISON: CT brain 2 days earlier HISTORY: Ischemic stroke. TECHNIQUE: Multiplanar, multisequence imaging of the brain and brainstem is performed without IV cont rast. FINDINGS: Diffusion weighted images demonstrate no evidence of a recent infarct or other diffusion abnormality. There is mild ventricular and sulcal prominence. There is occasional scattered focus of T2 hyperinten sity seen throughout the white matter bilaterally. Less than 5 distinct lesions are seen. Lesions pre sumed on the basis of product of chronic small vessel ischemic change in patient of this age.. Midline structures demonstrate normal morphology. The craniocervical junction appears within normal limits. Normal vascular flow voids are present. The visualized sinuses are clear and the globes are i ntact. IMPRESSION: 1. No MRI evidence for recent infarct. 2. Mild diffuse cerebral atrophy and minimal chronic small vessel ischemic changes are present.
[2023-10-01 17:13] LABS: Glucose,Whole Blood 92 mg/dL (70-110)
[2023-10-01] MEDS: ACETAMINOPHEN TAB 500 MG TAB PO PRN (17:20)
--- NOTE | 2023-10-01 17:36 | P.PN ---
Subjective Progress Note Date: 10/01/23 Patient was seen for a follow-up. Offers no new complaints. Continues to have some speech difficulty. Review of records from [facility]: Patient admitted on 09/17/2023 for strokelike symptoms with slurring of her words, difficulty speaking and shortness of breath. Patient also reported right arm numbness and tingling with no obvious weakness or facial droop. Patient's daughter has mentioned that she has some mild dysarthria at baseline but it was much worse. Her last hemoglobin A1c 5.7 on 02/21/2023. CBC was normal. Hepatic panel normal. UA negative. CT head revealed no evidence of acute intracranial bleed, midline shift or mass effect. Patient was seen by neurology telemetry consultation by Dr. Castillo. MRI of the brain with MRA recommended. Aspirin, Lipitor were recommended. In the discharge summary, MRI and MRA results are still pending, did not reported. Objective - Vital Signs Vital signs: Vital Signs Temp 98.0 F 10/01/23 07:51 Pulse 83 10/01/23 15:23 Resp 17 10/01/23 15:23 BP 146/73 10/01/23 15:23 Pulse Ox 96 10/01/23 15:23 FiO2 Intake & Output 09/30/23 10/01/23 10/01/23 18:59 06:59 18:59 Intake Total 500 358 Output Total 675 1400 Balance 500 -675 -1042 Weight 77.111 kg Intake: Oral 500 358 Output: Urine 675 1400 Straight 675 700 Other: Voiding Method External Catheter External Catheter - Exam Completely unchanged. - Labs CBC & Chem 7: 10/01/23 06:31 10/01/23 06:31 Labs: Abnormal Lab Results - Last 24 Hours (Table) 09/30/23 10/01/23 10/01/23 Range/Units 19:39 05:50 06:31 WBC 12.2 H (3.8-10.6) k/uL Carbon Dioxide (22-30) mmol/L BUN (7-17) mg/dL Creatinine (0.52-1.04) mg/dL Glucose (74-99) mg/dL POC Glucose (mg/dL) 147 H 143 H (70-110) mg/dL Magnesium (1.6-2.3) mg/dL 10/01/23 10/01/23 Range/Units 06:31 11:37 WBC (3.8-10.6) k/uL Carbon Dioxide 32 H (22-30) mmol/L BUN 19 H (7-17) mg/dL Creatinine 1.33 H (0.52-1.04) mg/dL Glucose 143 H (74-99) mg/dL POC Glucose (mg/dL) 63 L (70-110) mg/dL Magnesium 1.4 L (1.6-2.3) mg/dL Assessment and Plan Assessment: * 63-year-old female admitted with some speech difficulty and dragging right leg (per boyfriend, she drags her left leg). The symptoms have been present for last 2-1/2 to 3 weeks for which she was hospitalized at [facility] from 09/17/2023 and discharged on 09/21/2023. Patient had MRI performed, results are not available. Current examination is nonfocal. She has slightly slow speech, but no aphasia or dysarthria. Rest of the examination is nonfocal. NIH stroke scale is 0. * Hypertension * Diabetes * Hyperlipidemia * Mild renal insufficiency * Tobacco use Plan: * MRI of the brain without contrast revealed no MRI evidence for recent infarct. Mild diffuse cerebral atrophy and minimal chronic small vessel ischemic changes are present. I personally reviewed MRI, agree with the findings. No acute ischemic process. * 2-D echo was performed, which revealed normal left radicular size and systolic function with EF 55-60%. No evidence for an atrial septal defect. No PFO. Bubble study negative. No intracardiac mass. No valvular abnormalities. * CTA head and neck showed: No dissection or pseudoaneurysm detected in the carotid or vertebral arteries in the neck. Minor atherosclerotic calcific disease is present at the carotid bifurcations, without significant stenosis. Moderate mixed atherosclerotic disease along the aortic arch. There is mild to moderate stenosis of the origins of the branch vessels. No intracranial large vessel occlusion, significant stenosis or sizable aneurysm detected in the CTA of the head. * Fasting a.m. lipid panel with cholesterol 200, LDL 114, HDL 64 and triglycerides 106. Continue Lipitor 80 mg daily. * Hemoglobin A1c 7.6. Recommend optimize control of diabetes to target A1c < 7.0. * Optimize control of blood pressure. * Patient was already taking aspirin 81 mg daily for last 1 year. Patient is having some stroke type symptoms. We will start Plavix 75 mg daily. Recommend continuing DAPT for 21 days, then stop aspirin and continue Plavix. * Recommend aggressive control of stroke risk factors. * Telemetry monitoring rule out any arrhythmia * PT, OT, speech therapy * Physical medicine and rehab evaluated. * Recommend complete tobacco cessation. * DVT prophylaxis: Heparin 5000 units subcu every 8 hours * Neurologically clear with above recommendations.
[2023-10-01 19:58] LABS: Glucose,Whole Blood 170 mg/dL (70-110)
--- NOTE | 2023-10-02 00:24 | P.PN ---
Subjective Progress Note Date: 10/01/23 60-year-old pleasant female with smoking history continues to smoke came in with complaints of difficulty speaking, motor aphasia and decreased strength in the left side along with decreased sensation on the left side. Patient's strength is around 4/5 in the left upper and lower extremity. Patient does not have any significant facial droop. Patient had a CT angio of the head and neck and CT of the head which did not show any significant abnormality except for l old microvascular ischemic changes. Patient blood sugars are high at 306 and creatinine of 1.41, do not have any baseline creatinine. Patient is admitted for stroke and stroke workup 10/01/2023 Patient is evaluated today in follow up. Patient continues with significant motor aphasia. Left sided deficits are improving per the patient. Patient is currently pending MRI. Echocardiogram showing an EF of 55-60% mild pulmonary hypertension, negative bubble study. Labs today showing white blood cell count is 12.2. BUN 19 and creatinine is 1.33. Blood glucose down to 170. Magnesium 1.4. Review of Systems Constitutional: Denied any fatigue denied any fever. Cardio vascular: denied any chest pain, palpitations Gastrointestinal: denied any nausea, vomiting, diarrhea Pulmonary: Denied any shortness of breath cough Neurologic denied any new focal deficits All inpatient medications were reviewed and appropriate changes in these medic ations as dictated in the interval history and assessment and plan. PHYSICAL EXAMINATION: GENERAL: The patient is alert and oriented x2-3, not in any acute distress. Well developed, well nourished. HEENT: Pupils are round and equally reacting to light. EOMI. No scleral icterus. No conjunctival pallor. Normocephalic, atraumatic. No pharyngeal erythema. No thyromegaly. CARDIOVASCULAR: S1 and S2 present. No murmurs, rubs, or gallops. PULMONARY: Chest is clear to auscultation, no wheezing or crackles. ABDOMEN: Soft, nontender, nondistended, normoactive bowel sounds. No palpable organomegaly. MUSCULOSKELETAL: No joint swelling or deformity. EXTREMITIES: No cyanosis, clubbing, or pedal edema. NEUROLOGICAL: Focal deficits as mentioned above patient has speech abnormality. Patient's strength is around 4/5 in the left upper and lower extremity. SKIN: No rashes. Assessment and plan -Ischemic stroke involving right side of the brain and left side of the body, in the middle cerebral artery territory perforating branches supplying subcortical/internal capsular areas. Lipid panel complete, hemoglobin A1c 7.6, PT and OT consultation MRI of the brain, echocardiogram reviewed, patient continues on dual antiplatelet therapy. Neurology evaluation -Leukocytosis reactive without any evidence of infection, WBC improving -Hypertension patient blood pressure is elevated patient will be restarted back on amlodipine and hold off on losartan/lisinopril for permissive hypertension -Elevated creatinine unknown baseline, may have acute renal failure holding of LUCIUS inhibitor/ARB, patient was started on gentle hydration -COPD without any acute exacerbation continue to: Use: Counseling was provided -Hyperlipidemia -Type 2 diabetes mellitus: Patient will be resumed on home regimen along with sliding scale insulin -Gastroesophageal reflux disease DVT prophylaxis: Subcutaneous heparin The impression and plan of care has been dictated by Keara Huff Nurse Practitioner as directed. Dr. Norberto MD I have performed a history and physical examination and medical decision making of this patient, discussed the same with the dictator, and agree with the dictators assessment and plan as written, documented as a scribe. Based on total visit time, I have performed more than 50% of this visit. Objective - Vital Signs Vital signs: Vital Signs Temp 98.0 F 10/01/23 07:51 Pulse 88 10/01/23 11:19 Resp 17 10/01/23 11:19 BP 118/78 10/01/23 11:19 Pulse Ox 94 L 10/01/23 11:19 FiO2 Intake & Output 09/30/23 10/01/23 10/01/23 18:59 06:59 18:59 Intake Total 500 358 Output Total 675 1400 Balance 500 -675 -1042 Weight 77.111 kg Intake: Oral 500 358 Output: Urine 675 1400 Straight 675 700 Other: Voiding Method External Catheter External Catheter - Labs CBC & Chem 7: 10/01/23 06:31 10/01/23 06:31 Labs: Abnormal Lab Results - Last 24 Hours (Table) 09/29/23 09/30/23 09/30/23 Range/Units 14:57 12:15 16:08 WBC (3.8-10.6) k/uL Carbon Dioxide (22-30) mmol/L BUN (7-17) mg/dL Creatinine (0.52-1.04) mg/dL Glucose (74-99) mg/dL POC Glucose (mg/dL) 209 H (70-110) mg/dL Hemoglobin A1c 7.6 H (<=6.0) % Magnesium (1.6-2.3) mg/dL HDL Cholesterol 64.60 H (40.00-60.00) mg/dL 09/30/23 10/01/23 10/01/23 Range/Units 19:39 05:50 06:31 WBC 12.2 H (3.8-10.6) k/uL Carbon Dioxide (22-30) mmol/L BUN (7-17) mg/dL Creatinine (0.52-1.04) mg/dL Glucose (74-99) mg/dL POC Glucose (mg/dL) 147 H 143 H (70-110) mg/dL Hemoglobin A1c (<=6.0) % Magnesium (1.6-2.3) mg/dL HDL Cholesterol (40.00-60.00) mg/dL 10/01/23 10/01/23 Range/Units 06:31 11:37 WBC (3.8-10.6) k/uL Carbon Dioxide 32 H (22-30) mmol/L BUN 19 H (7-17) mg/dL Creatinine 1.33 H (0.52-1.04) mg/dL Glucose 143 H (74-99) mg/dL POC Glucose (mg/dL) 63 L (70-110) mg/dL Hemoglobin A1c (<=6.0) % Magnesium 1.4 L (1.6-2.3) mg/dL HDL Cholesterol (40.00-60.00) mg/dL Assessment and Plan Time with Patient: Less than 30
[2023-10-02 05:12] LABS: Glucose,Whole Blood 94 mg/dL (70-110)
[2023-10-02 08:16] VITALS: RESP 17
[2023-10-02 11:56] LABS: Glucose,Whole Blood 122 mg/dL (70-110)
[2023-10-02 15:21] VITALS: BP 140/82; PULSE 83; TEMP 97.9
[2023-10-03 10:51] LABS: Urine Alcohol Negative (Negative); Urine Barbiturate Negative (Negative); Urine Cocaine Negative (Negative); Urine Methadone Negative (Negative); Urine Opiates Positive (Negative); Urine Phencyclidine Negative (Negative)
[2023-10-04] MEDS ORDERED: PATIENT'S OWN (Dulaglutide [Trulicity] 0.75 MG/0.5 ML Each) SQ SCH (09:00)
--- NOTE | 2023-10-04 10:56 | CDI ---
Documentation Clarification Form Date: 10/04/2023 10:39:01 AM From: Vicky Butler RN, CCDS Phone: [phone] Admit Date: 09/29/2023 03:33:00 PM Patient Name: Mame Brantley Visit Number: [id number] Discharge Date: 10/02/2023 04:55:00 PM ATTENTION: The Clinical Documentation Specialists (CDI) and [facility] Coding Staff appreciate your assistance in clarifying documentation. Please respond to the clarification below the line at the bottom and electronically sign. The CDI & [facility] Coding staff will review the response and follow-up if needed. Please note: Queries are made part of the Legal Health Record. If you have any questions, please contact the author of this message via ITS. Dr. Glenny Thornton The patient had leukocytosis, tachycardia and renal failure. Based on this information and the findings below, is there an additional diagnosis that is clinically appropriate for this patient? History/Risk Factors: COPD, smoker, CVA/TIA and HTN. Presented with difficulty speaking, motor aphasia and decreased strength in the left side. Admitted with ischemic stroke involving right side of the brain and left side of the body. Clinical Indicators: ED: "EKG shows tachycardia." H&P: "Leukocytosis reactive without any evidence of infection. Elevated creatinine unknown baseline, may have acute renal failure, hold LUCIUS inhibitor/ARB, patient was started on gentle hydration." 09/30 IM: "Leukocytosis reactive without any evidence of infection, WBC improving." 09/28 HR 106-105 09/28-09/30 WBC 16.5-12.2 09/28-09/30 Cr: 1.41-1.33 Treatment: 500mL 0.9 NS IV bolus; hold LUCIUS inhibitor and ARB; monitor CBC and Cr Is there an additional diagnosis that is clinically appropriate for this patient? [ ] Non-infectious SIRS causing acute renal failure [ ] Non-infectious SIRS not causing acute renal failure [ ] Non-infectious SIRS without organ dysfunction [ x ] No additional diagnosis/not clinically significant [ ] Other, please specify [ ] Unable to determine SIRS Criteria: 2 or more of the following may indicate SIRS Temperature < 96.8F (36C) or > 101.0F (38.3C) Heart Rate > 90 bpm Respiratory Rate > 20 breaths/min or PaCO2 < 32 mmHg White Blood Cell Count > 12,000 or < 4,000 cells/mm3 or > 10% bands Already dictated in the prescription is not necessary MTDD
--- NOTE | 2023-10-05 15:48 | P.DS ---
Providers Date of admission: 09/29/23 15:33 Attending physician: Mickey Jung MD Consults: 09/29/23 15:34 Consult Physician Routine Consulting Provider: Zenon Ogden Consult Reason/Comments: CVA Do you want consulting provider notified?: Yes 10/01/23 11:47 Consult Physician Routine Consulting Provider: Kilo Bean Consult Reason/Comments: Inpatient rehab Do you want consulting provider notified?: Yes Primary care physician: Austin Chappell Hospital Course: Final Diagnosis -Ischemic stroke involving right side of the brain and left side of the body. Patient has history of stroke in the past. -Leukocytosis reactive without any evidence of infection, WBC improving this is reactive. -Hypertension -Elevated creatinine unknown baseline, may have acute renal failure holding of LUCIUS inhibitor/ARB -COPD without any acute exacerbation -Hyperlipidemia -Type 2 diabetes mellitus -Gastroesophageal reflux disease Discharge Disposition Patient is stable for discharge home. Has been cleared by neurology services. Patient is recommended by neurology to continue on aspirin and Plavix combination for the next 21 days and then continue on the plavix. Patient recommended to follow up closely with her PCP Dr Austin Chappell. Recommend aggressive control of stroke risk factors. Continue on lipitor. Target hemoglobin A1C less than 7.0. Hospital Course This is a 60-year-old pleasant female with smoking history, hypertension, diabetes mellitus, continues to smoke came in with complaints of difficulty speaking, motor aphasia and decreased strength in the left side along with decreased sensation on the left side. Patient's strength is around 4/5 in the left upper and lower extremity. Patient does not have any significant facial droop. Patient had a CT angio of the head and neck and CT of the head which did not show any significant abnormality except for l old microvascular ischemic changes. Patient blood sugars are high at 306 and creatinine of 1.41, do not have any baseline creatinine. Patient is admitted for stroke and stroke workup. Patient continues with significant motor aphasia. Left sided deficits are improving per the patient. Echocardiogram showing an EF of 55-60% mild pulmonary hypertension, negative bubble study. MRI of the brain without contrast revealed no MRI evidence for recent infarct. Mild diffuse cerebral atrophy and minimal chronic small vessel ischemic changes are present. This MRI was personally reviewed by neurology who felt that there was no ischemic process. CTA head and neck showed: No dissection or pseudoaneurysm detected in the carotid or vertebral arteries in the neck. Minor atherosclerotic calcific disease is present at the carotid bifurcations, without significant stenosis. Moderate mixed atherosclerotic disease along the aortic arch. There is mild to moderate stenosis of the origins of the branch vessels. No intracranial large vessel occlusion, significant stenosis or sizable aneurysm detected in the CTA of the head. Patient had a fasting lipid panel with cholesterol level of 200, LDL 114, HDL 64 triglyceride level is 106. Hemoglobin A1c is 7.6 with a target A1c less than 7.0. Patient is recommended by neurology to continue on aspirin and Plavix combination for the next 21 days and then continue on the plavix. Patient denies chest pain, denies shortness of breath. No nausea vomiting or diarrhea. Patients lungs are clear, S1 S2 auscultated, abdomen is soft and nontender. She will be discharged home. Please see medication reconciliation for a list of current medications. Thank you for allowing us to participate in the care of this patient. The impression and plan of care has been dictated by Keara Huff, Nurse Practitioner as directed. Dr. Norberto MD I have performed a history and physical examination and medical decision making of this patient, discussed the same with the dictator, and agree with the dictators assessment and plan as written, documented as a scribe. Based on total visit time, I have performed more than 50% of this visit. Patient Condition at Discharge: Fair Plan - Discharge Summary Discharge Rx Participant: No New Discharge Prescriptions: New Acetaminophen Tab [Tylenol] 500 mg PO Q6HR PRN tab PRN Reason: Fever And/ Or Pain Clopidogrel [Plavix] 75 mg PO DAILY #21 tab Continue Nicotine 7Mg/24Hr Patch [Habitrol] 1 patch TRANSDERM DIRECTED Atorvastatin [Lipitor] 80 mg PO HS Dulaglutide [Trulicity] 0.75 mg SQ FR Montelukast [Singulair] 10 mg PO HS HYDROcodone/APAP 10-325MG [Holt 10-325] 1 tab PO TID allopurinoL 100 mg PO DAILY lisinopriL [Zestril] 20 mg PO DAILY Multivitamin/Iron/Folic Acid [Centrum Women Tablet] 1 tab PO DAILY INSULIN LISPRO (HumaLOG) [humaLOG] 10 units SQ TID predniSONE See Taper PO HS Aspirin 81 mg PO HS Insulin Glargine,Hum.rec.anlog [Lantus Solostar Pen] 45 units SQ HS methocarbamoL [Robaxin] 500 mg PO QID PRN PRN Reason: Muscle Spasm calcitrioL 0.25 mcg PO JOHNSON@2100 Pregabalin [Lyrica] 225 mg PO BID amLODIPine [Norvasc] 5 mg PO DAILY Omeprazole 20 mg PO DAILY Magnesium Oxide [Magnesium] 500 mg PO BID Discontinued ALPRAZolam [Xanax] 1 mg PO BID Discharge Medication List Aspirin 81 mg PO HS 09/29/23 [History] Atorvastatin [Lipitor] 80 mg PO HS 09/29/23 [History] Dulaglutide [Trulicity] 0.75 mg SQ FR 09/29/23 [History] HYDROcodone/APAP 10-325MG [Holt 10-325] 1 tab PO TID 09/29/23 [History] INSULIN LISPRO (HumaLOG) [humaLOG] 10 units SQ TID 09/29/23 [History] Insulin Glargine,Hum.rec.anlog [Lantus Solostar Pen] 45 units SQ HS 09/29/23 [History] Magnesium Oxide [Magnesium] 500 mg PO BID 09/29/23 [History] Montelukast [Singulair] 10 mg PO HS 09/29/23 [History] Multivitamin/Iron/Folic Acid [Centrum Women Tablet] 1 tab PO DAILY 09/29/23 [History] Nicotine 7Mg/24Hr Patch [Habitrol] 1 patch TRANSDERM DIRECTED 09/29/23 [History] Omeprazole 20 mg PO DAILY 09/29/23 [History] Pregabalin [Lyrica] 225 mg PO BID 09/29/23 [History] allopurinoL 100 mg PO DAILY 09/29/23 [History] amLODIPine [Norvasc] 5 mg PO DAILY 09/29/23 [History] calcitrioL 0.25 mcg PO JOHNSON@2100 09/29/23 [History] lisinopriL [Zestril] 20 mg PO DAILY 09/29/23 [History] methocarbamoL [Robaxin] 500 mg PO QID PRN 09/29/23 [History] predniSONE See Taper PO HS 09/29/23 [History] Acetaminophen Tab [Tylenol] 500 mg PO Q6HR PRN tab 10/02/23 [Rx] Clopidogrel [Plavix] 75 mg PO DAILY #21 tab 06/12/24 [Rx] Follow up Appointment(s)/Referral(s): [facility], [NON-STAFF] - Joel Rae MD [Medical Doctor] - 1 Week (Office is closed for lunch, please call and schedule your follow up appointment. ) Austin Chappell [Primary Care Provider] - 1-2 days (no one answered, please call and schedule your follow up appointment. ) Deo Negro MD [STAFF PHYSICIAN] - 1 Week Ambulatory/Diagnostic Orders: Basic Metabolic Panel [LAB.AMB] Time Frame: 3 Days, Location: None Selected Patient Instructions/Handouts: Stroke (DC) Activity/Diet/Wound Care/Special Instructions: Continue aspirin and plavix together for the next 21 days, and than stop plavix and continue on aspirin 81 mg indefinitley. Repeat blood work in 2 to 3 days Need to follow up with Dr Noonan in 1 week outpatient Discharge/Stand Alone Forms: Who Do I Call?, Personal Director Of [employer] Discharge Disposition: HOME WITH HOME HEALTH SERVICES
== END 2023-10-02 16:55 | disposition home health service (06) | DRG 45 ==
LOC: EC 14:32 → 3SCARD 15:33
PROVIDERS: ADMIT Internal Medicine; ATTEND Internal Medicine
DX: I63.89 Other cerebral infarction (principal); N17.9 Acute kidney failure, unspecified; I27.20 Pulmonary hypertension, unspecified; G81.94 Hemiplegia, unspecified affecting left nondominant side; E11.42 Type 2 diabetes mellitus with diabetic polyneuropathy; J44.9 Chronic obstructive pulmonary disease, unspecified; I70.0 Atherosclerosis of aorta; E11.65 Type 2 diabetes mellitus with hyperglycemia; Z79.4 Long term (current) use of insulin; R47.01 Aphasia; Z99.81 Dependence on supplemental oxygen; I67.2 Cerebral atherosclerosis; I10 Essential (primary) hypertension; D72.828 Other elevated white blood cell count; F17.210 Nicotine dependence, cigarettes, uncomplicated; R29.703 NIHSS score 3; E78.5 Hyperlipidemia, unspecified; N28.9 Disorder of kidney and ureter, unspecified; I25.10 Atherosclerotic heart disease of native coronary artery without angina pectoris; K59.00 Constipation, unspecified; F41.9 Anxiety disorder, unspecified; K21.9 Gastro-esophageal reflux disease without esophagitis; H53.8 Other visual disturbances; Z79.891 Long term (current) use of opiate analgesic; Z79.82 Long term (current) use of aspirin; Z86.73 Personal history of transient ischemic attack (TIA), and cerebral infarction without residual deficits; Z79.85 Long-term (current) use of injectable non-insulin antidiabetic drugs; R47.82 Fluency disorder in conditions classified elsewhere; R45.89 Other symptoms and signs involving emotional state; R79.89 Other specified abnormal findings of blood chemistry; R26.89 Other abnormalities of gait and mobility; Z79.899 Other long term (current) drug therapy
CPT/HCPCS: 36415; 70450; 70496; 70498; 70551; 71046; 80048; 80053; 80061; 80306; 82550; 83036; 83735; 84484; 85025; 85027; 85610; 85730; 93005; 93306; 94760; 96360; 96361; 99291